=== PATIENT | female | born 2000 | race Caucasian/White ===

== ENCOUNTER 2024-07-24 12:31 | Inpatient (IN) ==
[2024-07-24] MEDS ORDERED: Lidocaine 1% VIAL 10 MG/ML 30 ML VIAL INJ PRN (14:14)
[2024-07-24] MEDS: miSOPROStol 100 mcg TAB PO ONE ×2 (14:58→19:13)
[2024-07-24 15:19] LABS: ABS Eosinophils 0.1 10^3/uL (0.0-0.5); ABS Monocytes 0.8 10^3/uL (0.0-0.9); ABS Neutrophils 9.6 10^3/uL (1.5-7.6); Eosinophil % 0.6 %; Hematocrit 32.2 % (35-45); Mean Corpuscular Hgb Conc 34.2 g/dL (31-36); Mean Corpuscular Volume 93.6 fL (80-97); Mean Platelet Volume 8.3 fL (7.5-11.2); Platelet Count 275 10^3/uL (150-450); Red Blood Count 3.44 10^6/uL (3.63-4.92); Red Cell Distribution Width 14.5 % (12-17); White Blood Count 12.5 10^3/uL (3.8-11.8)
[2024-07-24 15:50] LABS: Urine Benzodiazepine Screen None Detected (None Detect); Urine Cannabinoids Screen None Detected (None Detect); Urine Opiates Screen None Detected (None Detect)
[2024-07-24] MEDS: Buffered Lidocaine 1% SYRIN 1 ml INTRADERM ONE (19:09)
[2024-07-24] MEDS: Lactated Ringers 1000 ml BAG 1,000 ML IV ONE (23:00)
[2024-07-24] MEDS: Lidocaine 1.5% EPI 1:200,000 30 ML SDV ONE (23:43)
[2024-07-25] MEDS: OBEPIDURAL (200 ML) 200 ML EPIDURAL SCH (00:01)
[2024-07-25] MEDS: OBEPIDURAL (200 ML) 200 ML EPIDURAL ONE (00:02)
[2024-07-25] MEDS: Lactated Ringers 1000 ml BAG 1,000 ML IV ONE (00:02)
[2024-07-25] MEDS: Lactated Ringers 1000 ml BAG 1,000 ML IV SCH (00:13)
[2024-07-25] MEDS: Oxytocin in LR 20,000 MILLI.UNIT/1,000 ML BAG IV SCH ×2 (00:30→03:55)
[2024-07-25 00:43] LABS: Urine Appearance Turbid; Urine Bilirubin Negative (Negative); Urine Blood 1+ (Negative); Urine Color Light-Yellow; Urine Glucose Negative (Negative); Urine Ketones 1+ (Negative); Urine Nitrite Negative (Negative); Urine Protein Trace (Negative); Urine Specific Gravity 1.023 (1.002-1.030); Urine Urobilinogen Negative (Negative)
[2024-07-25 01:00] LABS: Urine Bacteria Absent /HPF (Absent); Urine Red Blood Cell 3+(>10/hpf) /HPF (0-Trace); Urine Squamous Epithelial Cell Present /HPF (Absent); Urine White Blood Cell Trace(0-5/hpf) /HPF (0-Trace)
[2024-07-25] MEDS: Phenylephrine 40 mcg/mL 10mL (400mcg) SYRINGE IV PUSH PRN ×2 (01:07→01:32)
[2024-07-25] MEDS: Phenylephrine 40 mcg/mL 10mL (400mcg) SYRINGE ONE (01:35)
[2024-07-25] MEDS: Sodium Citrate/Citric Acid LIQ 15 ML UDC PO PRN (03:21)
[2024-07-25] MEDS: ceFOXitin 2 GM IVPREMIX 2 GM/50 ML BAG IVPB ONE (03:40)
[2024-07-25] MEDS ORDERED: Morphine PF AMP (0.5MG/ML) 5 MG/10 ML AMP ONE (03:56)
[2024-07-25] MEDS ORDERED: Ondansetron 4 mg VIAL 2 MG/ML 2 ml VIAL ONE (04:08)
[2024-07-25] MEDS ORDERED: Propofol 10 MG/ML 20 ML BTL ONE (04:08)
[2024-07-25] MEDS ORDERED: Dexamethasone IV 4 MG/ML VIAL 1 ml VIAL ONE (04:08)
[2024-07-25] MEDS ORDERED: Ondansetron 4 mg VIAL 2 MG/ML 2 ml VIAL IV PRN (04:14)
[2024-07-25] MEDS ORDERED: Metoclopramide 5 MG/ML VIAL (10 mg) IV PRN (04:14)
[2024-07-25] MEDS ORDERED: Acetaminophen IV 1 GM/100ML 1,000 MG/100 ML BAG IV PRN (04:14)
[2024-07-25] MEDS ORDERED: Naloxone 0.4 mg VIAL 0.4 mg/ml 1 ml VIAL IV PUSH PRN (04:14)
[2024-07-25] MEDS ORDERED: Witch Hazel PAD JAR TOPICAL PRN (04:27)
[2024-07-25] MEDS ORDERED: Dibucaine 1% OINT 28.35 GM TUBE PR PRN (04:27)
[2024-07-25] MEDS ORDERED: Glycerin ADULT 2.4 gm SUPP PR PRN (04:27)
[2024-07-25] MEDS: ceFOXitin 2 GM IVPREMIX 2 GM/50 ML BAG ONE (04:49)
[2024-07-25] MEDS ORDERED: Lactated Ringers 1000 ml BAG 1,000 ML IV SCH (05:00)
[2024-07-26 06:48] LABS: ABS Eosinophils 0.1 10^3/uL (0.0-0.5); ABS Lymphocytes 2.9 10^3/uL (1.0-4.8); ABS Monocytes 0.8 10^3/uL (0.0-0.9); Eosinophil % 0.8 %; Lymphocyte % 24.4 %; Mean Corpuscular Hgb Conc 33.4 g/dL (31-36); Mean Platelet Volume 7.7 fL (7.5-11.2); Platelet Count 214 10^3/uL (150-450); Red Blood Count 2.82 10^6/uL (3.63-4.92); Red Cell Distribution Width 14.2 % (12-17); White Blood Count 11.8 10^3/uL (3.8-11.8)
[2024-07-27 09:25] VITALS: BP 113/69
== END 2024-07-27 15:50 | disposition home or self-care (01) | DRG 540 ==
LOC: MCHOBOUT 12:31 → MERGE 14:21 → MCHOB 14:21 → EDSEX 14:21 → MCHOB 07-25 06:03
PROVIDERS: ADMIT Midwife; ATTEND Obstetrics & Gynecology